=== PATIENT | female | born 1965 | race Native Hawaiian/Other Pacific Islander ===

== ENCOUNTER 2021-11-09 12:53 | Outpatient (CLI) | payer OTHER ==
[2021-11-09 14:06] LABS: PLATELET COUNT 285 K/uL (152-353)
[2021-11-09 14:32] LABS: POTASSIUM 4.8 mmol/L (3.6-5.2)
== END 2021-11-09 20:29 | disposition home or self-care (01) ==
LOC: CT 12:53
PROVIDERS: ATTEND Nurse Practitioner Family
DX: M15.0 Primary generalized (osteo)arthritis (principal); M54.16 Radiculopathy, lumbar region; M54.13 Radiculopathy, cervicothoracic region; M54.59 Other low back pain; M54.6 Pain in thoracic spine; M54.2 Cervicalgia; G44.52 New daily persistent headache (NDPH); I10 Essential (primary) hypertension; J43.1 Panlobular emphysema
CPT/HCPCS: 36415; 80053; 80061; 82306; 82607; 83036; 84443; 85027; 85652; 86140

== ENCOUNTER 2022-02-11 18:51 | Emergency (ER) | payer OTHER ==
[~2022-02-11] VITALS: Ht 152.4 cm; Wt 68.9 kg
[2022-02-11] MEDS ORDERED: AMLO2.5T PO (19:06)
[2022-02-11] MEDS ORDERED: [UNRECOGNIZED DRUG - OTHER] XX (19:07)
[2022-02-11] MEDS ORDERED: LOSA50TA PO (19:07)
[2022-02-11] MEDS ORDERED: AMITRIPTYLINE H25 MG PO (19:08)
[2022-02-11] MEDS ORDERED: BUSPIRONE HCL10 MG PO (19:08)
[2022-02-11] MEDS ORDERED: VAZALORE81 MG PO (19:09)
[2022-02-11 19:29] LABS: PLATELET COUNT 375 K/uL (152-353)
[2022-02-11 19:47] LABS: POTASSIUM 3.9 mmol/L (3.6-5.2); SODIUM 139 mmol/L (136-145)
[2022-02-12 06:45] VITALS: TEMP 97.9
[2022-02-12 12:50] VITALS: BP 156/89
== END 2022-02-12 12:50 | disposition still patient (30) ==
LOC: ED 18:53
PROVIDERS: Emergency Medicine Emergency Medical Services
DX: F32.9 Major depressive disorder, single episode, unspecified (principal); Z20.822 Contact with and (suspected) exposure to COVID-19
CPT/HCPCS: 36415; 80053; 80143; 80179; 80307; 80320; 81000; 85027; 87077; 87086; 87088; 87186; 87635; 99285; U0003

== ENCOUNTER 2022-10-15 10:09 | Outpatient (CLI) | payer OTHER ==
[~2022-10-15 10:09] MED LIST: AMITRIPTYLINE H25 MG PO; AMLO2.5T PO; BUSPIRONE HCL10 MG PO; LOSA50TA PO; VAZALORE81 MG PO; [UNRECOGNIZED DRUG - OTHER] XX
== END 2022-10-15 19:59 | disposition home or self-care (01) ==
LOC: RAD 10:09
PROVIDERS: ATTEND Nurse Practitioner Family
DX: M25.512 Pain in left shoulder (principal)

== ENCOUNTER 2022-10-22 12:43 | Outpatient (CLI) | payer OTHER | END 2022-10-22 19:08 | disposition home or self-care (01) | LOC: MRI 12:43 | PROVIDERS: ATTEND Nurse Practitioner Family | DX: F31.64 Bipolar disorder, current episode mixed, severe, with psychotic features (principal) | CPT/HCPCS: 36415; 82565; 84520; A9576 ==

== ENCOUNTER 2022-12-25 11:06 | Outpatient (CLI) | payer OTHER | END 2022-12-25 21:04 | disposition home or self-care (01) | LOC: RAD 11:06 | PROVIDERS: ATTEND Nurse Practitioner Family | DX: M25.552 Pain in left hip (principal); M25.551 Pain in right hip ==

== ENCOUNTER 2023-01-09 14:58 | Observation (INO) | payer OTHER ==
[~2023-01-09] VITALS: Ht 152.4 cm; Wt 70.8 kg
[2023-01-09 14:58] VITALS: BP 105/76; TEMP 98.2
[2023-01-09 16:00] VITALS: BP 131/79
[2023-01-09 17:46] LABS: PLATELET COUNT 316 K/uL (152-353)
[2023-01-09 17:57] LABS: POTASSIUM 4.1 mmol/L (3.6-5.2)
[2023-01-09 18:00] VITALS: BP 131/83
[2023-01-09 19:00] VITALS: BP 121/85
[2023-01-09 20:43] VITALS: BP 127/85; TEMP 98.9; Ht 152.4 cm; Wt 70.8 kg
[2023-01-09 22:58] VITALS: BP 138/93; TEMP 98.9
[2023-01-10] VITALS: BP 138/93; TEMP 98.4
[2023-01-10 04:00] VITALS: BP 148/77; TEMP 98.6
[2023-01-10 04:39] LABS: PLATELET COUNT 248 K/uL (152-353)
[2023-01-10 08:00] VITALS: BP 117/68; TEMP 97.8
[2023-01-10] MEDS ORDERED: VRAYLAR3 MG PO (08:53)
[2023-01-10] MEDS ORDERED: HCTZ PO (08:56)
[2023-01-10] MEDS ORDERED: LISINOPRIL PO (08:56)
[2023-01-10] MEDS ORDERED: BUDE1AER3 INH (08:57)
[2023-01-10] MEDS ORDERED: CYCL10TA35 PO (08:57)
[2023-01-10] MEDS ORDERED: GABA300C2 PO (08:58)
[2023-01-10] MEDS ORDERED: FLONASE AL50 MCG/ACT NAS (08:58)
[2023-01-10] MEDS ORDERED: AMITRIPTYLINE H50 MG PO (08:59)
[2023-01-10] MEDS ORDERED: MONT10TA PO (08:59)
[2023-01-10] MEDS ORDERED: TOPAMAX25 MG PO (09:00)
[2023-01-10] MEDS ORDERED: WOMENS ONE DAILY PO (09:01)
[2023-01-10] MEDS ORDERED: LORA0.5T17 PO (09:01)
[2023-01-10 12:00] VITALS: BP 108/78; TEMP 99
[2023-01-10] MEDS ORDERED: HYDR5TAB9 PO (14:09)
== END 2023-01-10 16:47 | disposition home or self-care (01) ==
LOC: ED 14:58 → MED/SURG 17:48
PROVIDERS: ADMIT Family Medicine; ATTEND Internal Medicine
DX: S32.19XA Other fracture of sacrum, initial encounter for closed fracture (principal); S32.591A Other specified fracture of right pubis, initial encounter for closed fracture; W11.XXXA Fall on and from ladder, initial encounter; Y92.89 Other specified places as the place of occurrence of the external cause; J44.9 Chronic obstructive pulmonary disease, unspecified; Z72.0 Tobacco use; F31.89 Other bipolar disorder; I10 Essential (primary) hypertension
CPT/HCPCS: 80053; 85027; 96361; 96374; 96375; 96376; 99221; 99284; G0378; J1170; J2405

== ENCOUNTER 2023-02-20 09:07 | Outpatient (CLI) | payer OTHER ==
[~2023-02-20 09:07] MED LIST changes: +AMITRIPTYLINE H50 MG PO; +BUDE1AER3 INH; +CYCL10TA35 PO; +FLONASE AL50 MCG/ACT NAS; +GABA300C2 PO; +HCTZ PO; +HYDR5TAB9 PO; +LISINOPRIL PO; +LORA0.5T17 PO; +MONT10TA PO; +TOPAMAX25 MG PO; +VRAYLAR3 MG PO; +WOMENS ONE DAILY PO
== END 2023-02-20 19:11 | disposition home or self-care (01) ==
LOC: MAMMO 09:07
PROVIDERS: ATTEND Orthopaedic Surgery Adult Reconstructive Orthopaedic Surgery
DX: Z12.31 Encounter for screening mammogram for malignant neoplasm of breast (principal); M80.08XA Age-related osteoporosis with current pathological fracture, vertebra(e), initial encounter for fracture; M25.552 Pain in left hip; S32.89XA Fracture of other parts of pelvis, initial encounter for closed fracture; M54.59 Other low back pain; Y92.89 Other specified places as the place of occurrence of the external cause